=== PATIENT | female | born 1950 | race Caucasian/White ===

== ENCOUNTER 2016-12-04 21:42 | Emergency (ER) | payer OTHER ==
--- NOTE | 2016-12-05 02:00 | ED CLINICAL REPORT ---
Clinical Report - Physicians/Mid Levels [facility] [address] [place] [address] 12/04/2016 21:44 [id number] Time Seen: 22:20 Dec 04 2016. Arrived- By private vehicle. Historian- patient. CPT: ER phys charges level 4 (#[id number]). HISTORY OF PRESENT ILLNESS Chief Complaint: FEVER and CHILLS. ( Onset. (pt has been off and on ill x 6 weeks, was on antibiotics for sinus infection, just finished 1 week ago --states that she was getting nause with antibiotics,(ampicillin) so did not take last 2 days worth of meds). She has had chills, sinus pain, a headache and vomiting. She has had chest congestion (last week).). 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 Her sinus symptoms got a lot better on the abx. last night patient had a severe episode of rigors and then had a spell again today . Fever noted in ER. and is still present. At its maximum, severity described as moderate. When seen in the E.D., it was gone. Modifying factors. Not worsened by anything. Not relieved by anything. The patient has had loss of appetite. (Pt notes amoxicillin caused nausea so she stopped it. Pt notes food today would not pass the stomach so she vomited. Denies pain anywhere. Says her sinus pain is gone after the recent abx. No diarrhea, abdominal pain. Has had a slight cough with sinus infection but that is also better. Has a "gallbladder that does not like fatty foods" but denies RUQ pain. No dysuria , throat pain or rash. No adenopathy.). Similar symptoms previously: As bad. Diagnosis: (Sinus infection). Recent medical care: The patient was seen recently at another facility in a clinic. REVIEW OF SYSTEMS The patient has had fever, a cough and chills. No sore throat, sinus drainage, nasal congestion, difficulty breathing or chest pain. No abdominal pain, nausea, diarrhea, black stools or bloody stools. No difficulty with urination, skin rash, back pain or calf pain. All systems otherwise negative, except as recorded above. PAST HISTORY Plantar Puncture Wound. Soft Tissue Foreign Body. Additional Surgeries: no known surgeries. Medications: Ibuprofen Oral 600 mg, 4x a day as needed, last dose 1000 today . Allergies: No Known Drug Allergy. SOCIAL HISTORY Never smoker. No alcohol use or drug use. ADDITIONAL NOTES The nursing notes have been reviewed. PHYSICAL EXAM Vital Signs: 12/04/2016 21:56 BP: 152/62. HR: 108. RR: 20. O2 saturation: 97%. Temp: 103.1 F. Appearance: Alert. No acute distress. Eyes: Pupils equal, round and reactive to light. Eyes normal inspection. ENT: Ears normal. Nose normal. Pharynx normal. Neck: Normal inspection. Neck supple. No meningeal signs. CVS: Normal heart rate and rhythm. Heart sounds normal. Pulses normal. Respiratory: No respiratory distress. Breath sounds normal. Chest nontender. Abdomen: Soft and nontender. Bowel sounds normal. Back: Normal inspection. Skin: Skin warm. Normal skin color. No rash. Extremities: Extremities exhibit normal ROM. No lower extremity edema. Neuro: Oriented X 3. No motor deficit. No sensory deficit. Reflexes normal. LABS, X-RAYS, AND EKG Chest X-ray: Normal Chest X-Ray. Laboratory Tests: UA-Culture if indicated: (PAMELLA: 12/04/2016 23:53) ( MsgRcvd 12/05/2016 00:14) Final results Test Result Flag Units (Reference) URINE COLOR YELLOW URINE APPEARANCE SL CLOUDY URINE GLUCOSE NEGATIVE (NEGATIVE) URINE BILIRUBIN NEGATIVE (NEGATIVE) URINE KETONE NEGATIVE (NEGATIVE) URINE SPECIFIC GRAVITY 1.010 (1.010-1.030) URINE PH 6.5 (5.0-8.0) URINE PROTEIN TRACE (NEGATIVE) URINE UROBILINOGEN 0.2 EU/dL (0.2-1.0) URINE NITRITE POSITIVE (NEGATIVE) URINE BLOOD 1+ (NEGATIVE) URINE LEUK ESTERASE POSITIVE (NEGATIVE) URINE RBC 3-5 rbc/hpf (0-1) URINE WBC 25-50 wbc/hpf (0-1) URINE EPITHELIAL CELLS 10-15 EPI/hpf (0-5) URINE BACTERIA MODERATE (2+ TO 3+) (NONE SEEN) URINE COMMENT CULTURE INDICATED URINE CULTURES ARE SET-UP BASED ON THE FOLLOWING CRITERIA:POSITIVE NITRITEPOSITIVE LEUKOCYTE ESTERASEGREATER THAN 10 WHITE BLOOD CELLSMODERATE (2+) OR GREATER BACTERIA CBC w Diff: (PAMELLA: 12/04/2016 22:54) ( [facility] 12/04/2016 23:38) Final results Test Result Flag Units (Reference) WHITE BLOOD COUNT 11.5 K/uL (4.5-11.5) RED BLOOD COUNT 4.92 M/uL (4.00-5.20) HEMOGLOBIN 13.8 gm/dL (12.0-16.0) HEMATOCRIT 42.2 % (36.0-46.0) MEAN CELL VOLUME 86 fL (80-100) MEAN CORPUSCULAR HGB 28 pg (26-34) MEAN CORPUSCULAR HGB CONC 33 g/dL (31-37) RED CELL DISTRIBUTION WIDTH 13.1 % (11.6-14.8) PLATELET COUNT 261 K/uL (150-400) LYMPH % 6.4 L % (25-40) MONO % 2.7 L % (3-14) GRANULOCYTE % 90.9 H (53-90) Lactate, Serum: (PAMELLA: 12/04/2016 22:54) ( [facility] 12/05/2016 00:04) Final results Test Result Flag Units (Reference) LACTIC ACID 2.7 H mmol/L (0.4-2.0) [id number]: (PAMELLA: 12/04/2016 22:54) ( [facility] 12/05/2016 00:34) Final results Test Result Flag Units (Reference) PROCALCITONIN 1.1 H ng/mL (0-0.5) PCT Concentration: Interpretation : Risk/option for action PCT <=0.5 ng/mL : Systemic : Low risk forinfection(sepsis): progression to severeis not likely. : systemic infection.Local bacterial : CAUTION-PCT levelsinfection is : below 0.5 ng/mL do notpossible. : exclude an infection,because localizedinfections (withoutsystemic signs) may beassociated with suchlow levels. If PCT ismeasured very earlyafter a bacterialchallenge (usually <6hours), these valuesmay still be low. Inthis case PCT shouldbe re-assessed 6-24hours later. PCT >0.5 and : Systemic infection: Moderate risk for<= 2 ng/mL : (sepsis) is : progression to severepossible, but : systemic infection.other conditions : The patient should beare known to : closely monitoredelevate PCT. : both clinically andby re-assessing PCTwithin 6-24 hours. PCT > 2 ng/mL : Systemic infection: High risk for(sepsis) is likely: progression to severeunless other : systemic infection.causes are known. : PCT >= 10 ng/mL : Important systemic: High likelihood ofinflammatory : severe sepsis orresponse, almost : septic shock.exclusively due to:severe bacterial :sepsis or septic :shock. : Lipase: (PAMELLA: 12/04/2016 22:54) ( MsgRcvd 12/04/2016 23:52) Final results Test Result Flag Units (Reference) LIPASE 85 U/L (73-393) AMYLASE 36 U/L (25-115) CHEM 13 PANEL: (PAMELLA: 12/04/2016 22:54) ( MsgRcvd 12/04/2016 23:55) Final results Test Result Flag Units (Reference) GLUCOSE 144 H mg/dL (70-110) BUN 17 mg/dL (7-18) CREATININE 1.1 mg/dL (0.6-1.3) Estimated GFR 52.98 mL/min Estimated GFR- >60 mL/min Note: Persistent reduction over 3 months in eGFR<60 mL/min/1.73 m2 defines CKD. Patients with eGFR values>=60 mL/min/1.73 m2 may also have CKD if evidence ofpersistent proteinuria. Additional information may be foundat www.kidney.org. SODIUM 138 mmol/L (136-145) POTASSIUM 3.9 mmol/L (3.5-5.1) CHLORIDE 102 mmol/L (98-107) CARBON DIOXIDE 24 mmol/L (21-32) CALCIUM 9.1 mg/dL (8.5-10.1) TOTAL PROTEIN 7.4 g/dL (6.4-8.2) ALBUMIN 3.7 g/dL (3.3-5.0) BILIRUBIN, TOTAL 0.8 mg/dL (0.0-1.0) ALKALINE PHOSPHATASE 65 U/L (46-116) AST (SGOT) 30 U/L (15-37) ALT (SGPT) 39 U/L (12-78) MAGNESIUM 1.9 mg/dL (1.8-2.4) CPK 117 U/L (24-260) TROPONIN I <0.05 ng/mL (0.00-1.5) TROPONIN REFERENCE RANGE:<0.1 NEGATIVE0.1-1.5 INDETERMINANT>1.5 POSITIVE Rapid Influenza Screen: (PAMELLA: 12/04/2016 22:16) ( MsgRcvd 12/04/2016 22:32) Final results SPECIMEN DESCRIPTION: NASAL Test Result Flag Units (Reference) RAPID INFLUENZA SCREEN CALLED TO: NA -- DATE: 12/04/16 INFLUENZA A: NEGATIVE SCREEN FOR INFLUENZA A INFLUENZA B: NEGATIVE SCREEN FOR INFLUENZA B . PROGRESS AND PROCEDURES Course of Care: Tylenol 1g po IV NS BC times 2 Levaquin 500 mg IV Patient is stable. Patient/family counseled. Disposition: Discharged. Condition: stable. CLINICAL IMPRESSION UTI Bacteremia with rigors and fever. INSTRUCTIONS No strenuous activity. Rest. Drink plenty of fluids. Warnings: Further evaluation is necessary. GENERAL WARNINGS: Return or contact your physician immediately if your condition worsens or changes unexpectedly, if not improving as expected, or if other problems arise. Prescription Medications: Levaquin 500 mg: take 1 tab orally every day for 10 days. No refills. Substitution is permissible. Follow-up: Return to the emergency department If worse. Follow up with your doctor Wednesday in two days. Call for an appointment. Understanding of the discharge instructions verbalized by patient and family. Follow-up with: [facility], , , [address], , [facility] [id number] Follow up Wednesday in two days. Call for the next available appointment. (Electronically signed by Tim Lazo MD 12/06/2016 23:47)
--- NOTE | 2016-12-05 02:00 | ED NURSING NOTES ---
Clinical Report - Nurses [facility] [address] [place] [address] 12/04/2016 21:44 Patient: ANDRAE DILLARD TRIAGE Triage time 2150. Acuity: LEVEL 3. Chief Complaint: FEVER, COUGH and BODY ACHES. --22:02 Iona Roach R.N. 21:56 12/04/16. O2 saturation: 97%. Temp: 103.1 F. Pain level now 0/10. --22:02 Iona Roach R.N. Weight: 107.9 kg stated. Height/Length: 63 inches Per Patient. BMI: 42.1. --22:00 Iona Roach R.N. Medications Ibuprofen Oral 600 mg, 4x a day as needed, last dose 1000 today . --22:02 Iona Roach R.N. Allergies No Known Drug Allergy. --22:02 Iona Roach R.N. History Arrived by private vehicle. Historian: patient and family. Accompanied by family. No primary care physician. Onset. (pt has been off and on ill x 6 weeks, was on antibiotics for sinus infection, just finished 1 week ago --states that she was getting nause with antibiotics,(ampicillin) so did not take last 2 days worth of meds). She has had chills, sinus pain, a headache and vomiting. She has had chest congestion (last week). PAST MEDICAL HX: Immunizations: (8years ago). SURGERY HX: No history of previous surgery. SOCIAL HX: Never smoker. No alcohol use or drug use. --22:02 Iona Roach R.N. PROBLEMS: Plantar Puncture Wound. Soft Tissue Foreign Body. --21:59 Iona Roach R.N. ADDITIONAL SURGERIES: no known surgeries. Interventions ID band on patient. To treatment room. --22:02 Iona Roach R.N. PHYSICAL ASSESSMENT 22:03 12/04/16. Ambulatory to room. Patient gowned. GENERAL / NEURO / PSYCH: Alert. Oriented X 4. Appears in no acute distress. RESPIRATORY: Respirations not labored. Cough. Chest wall tenderness. CVS: Capillary refill less than 2 seconds. GI / : ( constipation). She has had nausea. Abdomen soft. SKIN: Skin is dry. Hot skin. --22:03 Iona Roach R.N. NURSING PROGRESS NOTES 21:50. Patient gowned. Head of bed elevated. Reassurance given. Patient identifiers checked. Call light placed in reach. Side rails up. Bed placed in lowest position. Patient ready for evaluation- chart flagged. --22:02 Iona Roach R.N. 22:11 12/04/2016 Tylenol (Acetaminophen) PO Tablets 1000 mg given. Allergies verified and confirmed 5 rights. --22:11 Iona Roach R.N. 22:12 12/04/16. Patient ID band checked for patient name and birthdate: patient confirmed. Flu swab obtained by RN via nasal pharyngeal swab. Labeled in the presence of the patient and sent to lab. --22:12 Iona Roach R.N. 22:25 12/04/16. Care transferred and report given (Ihsan ROBIN). --22:25 Iona Roach R.N. 23:00 12/04/2016 Site #1 started via IV in the right antecubital space with an 18g angiocath, with aseptic technique and good blood return; one attempt. Blood drawn: rainbow set and cultures x1. Labeled in the presence of the patient and sent to the lab. --23:00 Ihsan Murphy R.N. 23:00 12/04/2016 Started bag #1 500 mL IV Fluids IV NS (Saline); bolus of 500 mL wide open via site #1. Allergies verified and confirmed 5 rights. IV patency established. IV site checked: no pain, redness, or swelling. IV flushed thoroughly pre- and post-medication administration. --23:00 Ihsna Murphy R.N. 00:50 12/05/2016 Started 500 mg of Levaquin (Levofloxacin) IVPB in bag #1 100 mL; at 100 mL/hr over 1 hour(s) via site #1 via IV pump. Allergies verified and confirmed 5 rights. IV patency established. IV site checked: no pain, redness, or swelling. IV flushed thoroughly pre- and post-medication administration. --00:50 Ihsan Murphy R.N. DISPOSITION / DISCHARGE Condition at departure: improved. No learning barriers present. Discharge instructions provided and reviewed with the patient. Reviewed warnings. Reviewed medication(s). Treatments reviewed. Patient and family verbalized understanding. Written instructions provided in Spanish. The patient was discharged by the physician. She was discharged home and accompanied by family. She left the Emergency Department ambulatory and via private vehicle. Family member driving. --02:02 Ihsan Murphy R.N. 02:01 12/05/16. BP: 117/50. HR: 77. RR: 18. O2 saturation: 96%. Temp: 98.7 F. Pain level now 0/10. --02:02 Ihsan Murphy R.N. Departure time: 1. --02:12 Ihsan Murphy R.N. Locked/Released at 12/05/2016 2:12 by Ihsan Murphy R.N.
--- NOTE | 2016-12-05 02:00 | ED CLINICAL REPORT ---
Clinical Report - Physicians/Mid Levels [facility] [address] [place] [address] 12/04/2016 21:44 [id number] Time Seen: 22:20 Dec 04 2016. Arrived- By private vehicle. Historian- patient. CPT: ER phys charges level 4 (#[id number]). HISTORY OF PRESENT ILLNESS Chief Complaint: FEVER and CHILLS. ( Onset. (pt has been off and on ill x 6 weeks, was on antibiotics for sinus infection, just finished 1 week ago --states that she was getting nause with antibiotics,(ampicillin) so did not take last 2 days worth of meds). She has had chills, sinus pain, a headache and vomiting. She has had chest congestion (last week).). 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 Her sinus symptoms got a lot better on the abx. last night patient had a severe episode of rigors and then had a spell again today . Fever noted in ER. and is still present. At its maximum, severity described as moderate. When seen in the E.D., it was gone. Modifying factors. Not worsened by anything. Not relieved by anything. The patient has had loss of appetite. (Pt notes amoxicillin caused nausea so she stopped it. Pt notes food today would not pass the stomach so she vomited. Denies pain anywhere. Says her sinus pain is gone after the recent abx. No diarrhea, abdominal pain. Has had a slight cough with sinus infection but that is also better. Has a "gallbladder that does not like fatty foods" but denies RUQ pain. No dysuria , throat pain or rash. No adenopathy.). Similar symptoms previously: As bad. Diagnosis: (Sinus infection). Recent medical care: The patient was seen recently at another facility in a clinic. REVIEW OF SYSTEMS The patient has had fever, a cough and chills. No sore throat, sinus drainage, nasal congestion, difficulty breathing or chest pain. No abdominal pain, nausea, diarrhea, black stools or bloody stools. No difficulty with urination, skin rash, back pain or calf pain. All systems otherwise negative, except as recorded above. PAST HISTORY Plantar Puncture Wound. Soft Tissue Foreign Body. Additional Surgeries: no known surgeries. Medications: Ibuprofen Oral 600 mg, 4x a day as needed, last dose 1000 today . Allergies: No Known Drug Allergy. SOCIAL HISTORY Never smoker. No alcohol use or drug use. ADDITIONAL NOTES The nursing notes have been reviewed. PHYSICAL EXAM Vital Signs: 12/04/2016 21:56 BP: 152/62. HR: 108. RR: 20. O2 saturation: 97%. Temp: 103.1 F. Appearance: Alert. No acute distress. Eyes: Pupils equal, round and reactive to light. Eyes normal inspection. ENT: Ears normal. Nose normal. Pharynx normal. Neck: Normal inspection. Neck supple. No meningeal signs. CVS: Normal heart rate and rhythm. Heart sounds normal. Pulses normal. Respiratory: No respiratory distress. Breath sounds normal. Chest nontender. Abdomen: Soft and nontender. Bowel sounds normal. Back: Normal inspection. Skin: Skin warm. Normal skin color. No rash. Extremities: Extremities exhibit normal ROM. No lower extremity edema. Neuro: Oriented X 3. No motor deficit. No sensory deficit. Reflexes normal. LABS, X-RAYS, AND EKG Chest X-ray: Normal Chest X-Ray. Laboratory Tests: UA-Culture if indicated: (PAMELLA: 12/04/2016 23:53) ( MsgRcvd 12/05/2016 00:14) Final results Test Result Flag Units (Reference) URINE COLOR YELLOW URINE APPEARANCE SL CLOUDY URINE GLUCOSE NEGATIVE (NEGATIVE) URINE BILIRUBIN NEGATIVE (NEGATIVE) URINE KETONE NEGATIVE (NEGATIVE) URINE SPECIFIC GRAVITY 1.010 (1.010-1.030) URINE PH 6.5 (5.0-8.0) URINE PROTEIN TRACE (NEGATIVE) URINE UROBILINOGEN 0.2 EU/dL (0.2-1.0) URINE NITRITE POSITIVE (NEGATIVE) URINE BLOOD 1+ (NEGATIVE) URINE LEUK ESTERASE POSITIVE (NEGATIVE) URINE RBC 3-5 rbc/hpf (0-1) URINE WBC 25-50 wbc/hpf (0-1) URINE EPITHELIAL CELLS 10-15 EPI/hpf (0-5) URINE BACTERIA MODERATE (2+ TO 3+) (NONE SEEN) URINE COMMENT CULTURE INDICATED URINE CULTURES ARE SET-UP BASED ON THE FOLLOWING CRITERIA:POSITIVE NITRITEPOSITIVE LEUKOCYTE ESTERASEGREATER THAN 10 WHITE BLOOD CELLSMODERATE (2+) OR GREATER BACTERIA CBC w Diff: (PAMELLA: 12/04/2016 22:54) ( [facility] 12/04/2016 23:38) Final results Test Result Flag Units (Reference) WHITE BLOOD COUNT 11.5 K/uL (4.5-11.5) RED BLOOD COUNT 4.92 M/uL (4.00-5.20) HEMOGLOBIN 13.8 gm/dL (12.0-16.0) HEMATOCRIT 42.2 % (36.0-46.0) MEAN CELL VOLUME 86 fL (80-100) MEAN CORPUSCULAR HGB 28 pg (26-34) MEAN CORPUSCULAR HGB CONC 33 g/dL (31-37) RED CELL DISTRIBUTION WIDTH 13.1 % (11.6-14.8) PLATELET COUNT 261 K/uL (150-400) LYMPH % 6.4 L % (25-40) MONO % 2.7 L % (3-14) GRANULOCYTE % 90.9 H (53-90) Lactate, Serum: (PAMELLA: 12/04/2016 22:54) ( [facility] 12/05/2016 00:04) Final results Test Result Flag Units (Reference) LACTIC ACID 2.7 H mmol/L (0.4-2.0) [id number]: (PAMELLA: 12/04/2016 22:54) ( [facility] 12/05/2016 00:34) Final results Test Result Flag Units (Reference) PROCALCITONIN 1.1 H ng/mL (0-0.5) PCT Concentration: Interpretation : Risk/option for action PCT <=0.5 ng/mL : Systemic : Low risk forinfection(sepsis): progression to severeis not likely. : systemic infection.Local bacterial : CAUTION-PCT levelsinfection is : below 0.5 ng/mL do notpossible. : exclude an infection,because localizedinfections (withoutsystemic signs) may beassociated with suchlow levels. If PCT ismeasured very earlyafter a bacterialchallenge (usually <6hours), these valuesmay still be low. Inthis case PCT shouldbe re-assessed 6-24hours later. PCT >0.5 and : Systemic infection: Moderate risk for<= 2 ng/mL : (sepsis) is : progression to severepossible, but : systemic infection.other conditions : The patient should beare known to : closely monitoredelevate PCT. : both clinically andby re-assessing PCTwithin 6-24 hours. PCT > 2 ng/mL : Systemic infection: High risk for(sepsis) is likely: progression to severeunless other : systemic infection.causes are known. : PCT >= 10 ng/mL : Important systemic: High likelihood ofinflammatory : severe sepsis orresponse, almost : septic shock.exclusively due to:severe bacterial :sepsis or septic :shock. : Lipase: (PAMELLA: 12/04/2016 22:54) ( MsgRcvd 12/04/2016 23:52) Final results Test Result Flag Units (Reference) LIPASE 85 U/L (73-393) AMYLASE 36 U/L (25-115) CHEM 13 PANEL: (PAMELLA: 12/04/2016 22:54) ( MsgRcvd 12/04/2016 23:55) Final results Test Result Flag Units (Reference) GLUCOSE 144 H mg/dL (70-110) BUN 17 mg/dL (7-18) CREATININE 1.1 mg/dL (0.6-1.3) Estimated GFR 52.98 mL/min Estimated GFR- >60 mL/min Note: Persistent reduction over 3 months in eGFR<60 mL/min/1.73 m2 defines CKD. Patients with eGFR values>=60 mL/min/1.73 m2 may also have CKD if evidence ofpersistent proteinuria. Additional information may be foundat www.kidney.org. SODIUM 138 mmol/L (136-145) POTASSIUM 3.9 mmol/L (3.5-5.1) CHLORIDE 102 mmol/L (98-107) CARBON DIOXIDE 24 mmol/L (21-32) CALCIUM 9.1 mg/dL (8.5-10.1) TOTAL PROTEIN 7.4 g/dL (6.4-8.2) ALBUMIN 3.7 g/dL (3.3-5.0) BILIRUBIN, TOTAL 0.8 mg/dL (0.0-1.0) ALKALINE PHOSPHATASE 65 U/L (46-116) AST (SGOT) 30 U/L (15-37) ALT (SGPT) 39 U/L (12-78) MAGNESIUM 1.9 mg/dL (1.8-2.4) CPK 117 U/L (24-260) TROPONIN I <0.05 ng/mL (0.00-1.5) TROPONIN REFERENCE RANGE:<0.1 NEGATIVE0.1-1.5 INDETERMINANT>1.5 POSITIVE Rapid Influenza Screen: (PAMELLA: 12/04/2016 22:16) ( MsgRcvd 12/04/2016 22:32) Final results SPECIMEN DESCRIPTION: NASAL Test Result Flag Units (Reference) RAPID INFLUENZA SCREEN CALLED TO: NA -- DATE: 12/04/16 INFLUENZA A: NEGATIVE SCREEN FOR INFLUENZA A INFLUENZA B: NEGATIVE SCREEN FOR INFLUENZA B . PROGRESS AND PROCEDURES Course of Care: Tylenol 1g po IV NS BC times 2 Levaquin 500 mg IV Patient is stable. Patient/family counseled. Disposition: Discharged. Condition: stable. CLINICAL IMPRESSION UTI Bacteremia with rigors and fever. INSTRUCTIONS No strenuous activity. Rest. Drink plenty of fluids. Warnings: Further evaluation is necessary. GENERAL WARNINGS: Return or contact your physician immediately if your condition worsens or changes unexpectedly, if not improving as expected, or if other problems arise. Prescription Medications: Levaquin 500 mg: take 1 tab orally every day for 10 days. No refills. Substitution is permissible. Follow-up: Return to the emergency department If worse. Follow up with your doctor Wednesday in two days. Call for an appointment. Understanding of the discharge instructions verbalized by patient and family. Follow-up with: [facility], , , [address], , [facility] [id number] Follow up Wednesday in two days. Call for the next available appointment. (Electronically signed by Tim Lazo MD 12/06/2016 23:47)
--- NOTE | 2016-12-05 02:00 | ED ORDER SUMMARY ---
..... Patient: ANDRAE DILLARD OrderSheet [facility] VisitID: [id number] [place] [address] 66y, F Registration Date/Time: 12/04/2016 ORDER SHEET Weight: 107.9 kg (stated) Allergies: No Known Drug Allergy GENERAL ORDERS: Rapid Influenza Screen (Nasal Pharyngeal) (nasal) Urgent (22:11 12/04/2016 DDean R.N. per protocol) (Ack 22:16 AMcQuoid ER Tech1) (22:16 AMcQuoid ER Tech1) Blood Culture (No) (stopped amoxicillin 2 days ago. ) Urgent (22:35 12/04/2016 Dot CLEANING) (Ack 22:38 AMcQuoid ER Tech1) (23:11 AMcQuoid ER Tech1) Chest 2V Urgent (22:36 12/04/2016 Dot CLEANING) (Ack 22:38 AMcQuoid ER Tech1) (23:00 MCampbell) UA-Culture if indicated Urgent (22:36 12/04/2016 Dot CLEANING) (Ack 22:38 AMcQuoid ER Tech1) (23:53 JEullard R.N.) Cardiac Panel Stat (22:36 12/04/2016 Dot CLEANING) (Ack 22:38 AMcQuoid ER Tech1) (22:59 JBullard R.N.) Lipase Urgent (22:36 12/04/2016 Dot CLEANING) (Ack 22:38 AMcQuoid ER Tech1) (22:59 JEullard R.N.) Amylase Urgent (22:36 12/04/2016 Dot CLEANING) (Ack 22:38 AMcQuoid ER Tech1) (22:59 JEullard R.N.) Lactate, Serum Urgent (22:36 12/04/2016 Dot CLEANING) (Ack 22:38 AMcQuoid ER Tech1) (22:59 JBullard R.N.) PCT (Procalcitonin) Urgent (22:36 12/04/2016 Dot CLEANING) (Ack 22:38 AMcQuoid ER Tech1) (23:00 JBullard R.N.) MEDICATION ORDERS: Tylenol PO 1,000 mg (NOW) (22:10 12/04/2016 Mitzi R.N. per protocol) (22:11 Mitzi R.N.) IV FLUIDS: IV NS : initial bolus 500 mL (1000 mL/hr), then 150 mL/hr for 4h (NOW); Routine (22:35 12/04/2016 Dot CLEANING) (23:00 Angela R.N.) Levaquin IV 500 mg/100mL (NOW) (00:27 12/05/2016 Dot CLEANING) (0:50 Angela Wheeler.NGayatri) ORDER SHEET NOTES: [Electronically signed by Ihsan Murphy R.N. (02:12 12/05/2016)] [Electronically signed by Tim Lazo MD (23:47 12/06/2016)] [Electronically locked/signed by Ihsan Murphy R.N. (02:12 12/05/2016)]
--- NOTE | 2016-12-05 02:00 | ED ORDER SUMMARY ---
..... Patient: ANDRAE DILLARD OrderSheet [facility] VisitID: [id number] [place] [address] 66y, F Registration Date/Time: 12/04/2016 ORDER SHEET Weight: 107.9 kg (stated) Allergies: No Known Drug Allergy GENERAL ORDERS: Rapid Influenza Screen (Nasal Pharyngeal) (nasal) Urgent (22:11 12/04/2016 DDean R.N. per protocol) (Ack 22:16 AMcQuoid ER Tech1) (22:16 AMcQuoid ER Tech1) Blood Culture (No) (stopped amoxicillin 2 days ago. ) Urgent (22:35 12/04/2016 Dot CLEANING) (Ack 22:38 AMcQuoid ER Tech1) (23:11 AMcQuoid ER Tech1) Chest 2V Urgent (22:36 12/04/2016 Dot CLEANING) (Ack 22:38 AMcQuoid ER Tech1) (23:00 MCampbell) UA-Culture if indicated Urgent (22:36 12/04/2016 Dot CLEANING) (Ack 22:38 AMcQuoid ER Tech1) (23:53 JEullard R.N.) Cardiac Panel Stat (22:36 12/04/2016 Dot CLEANING) (Ack 22:38 AMcQuoid ER Tech1) (22:59 JBullard R.N.) Lipase Urgent (22:36 12/04/2016 Dot CLEANING) (Ack 22:38 AMcQuoid ER Tech1) (22:59 JEullard R.N.) Amylase Urgent (22:36 12/04/2016 Dot CLEANING) (Ack 22:38 AMcQuoid ER Tech1) (22:59 JEullard R.N.) Lactate, Serum Urgent (22:36 12/04/2016 Dot CLEANING) (Ack 22:38 AMcQuoid ER Tech1) (22:59 JBullard R.N.) PCT (Procalcitonin) Urgent (22:36 12/04/2016 Dot CLEANING) (Ack 22:38 AMcQuoid ER Tech1) (23:00 JBullard R.N.) MEDICATION ORDERS: Tylenol PO 1,000 mg (NOW) (22:10 12/04/2016 Mitzi R.N. per protocol) (22:11 Mitzi R.N.) IV FLUIDS: IV NS : initial bolus 500 mL (1000 mL/hr), then 150 mL/hr for 4h (NOW); Routine (22:35 12/04/2016 Dot CLEANING) (23:00 Angela R.N.) Levaquin IV 500 mg/100mL (NOW) (00:27 12/05/2016 Dot CLEANING) (0:50 Angela Wheeler.[email or web address]) ORDER SHEET NOTES: [Electronically signed by Ihsan Murphy R.N. (02:12 12/05/2016)] [Electronically signed by Tim Lazo MD (23:47 12/06/2016)] [Electronically locked/signed by Ihsan Murphy R.N. (02:12 12/05/2016)]
--- NOTE | 2016-12-05 06:04 | DIAGNOSTIC IMAGING REPORT ---
PROCEDURE: XR CHEST 2 VIEW INDICATION: FEVER TECHNIQUE: Two views. COMPARISON: None. FINDINGS: The cardiomediastinal contour and central vasculature are within normal limits. Mild lower lobe interstitial prominence. Minor strand-like wispy densities in the medial lung bases bilaterally. No dense consolidation, pleural effusion, or pneumothorax. The visualized osseous structures are intact. IMPRESSION: 1. Minor patchy interstitial and parenchymal changes, likely subsegmental atelectasis with interstitial thickening. Findings could be seen in viral or atypical infections. 2. No dense consolidations to suggest bacterial pneumonia.
--- NOTE | 2016-12-06 23:47 | ED DISCHARGE INSTRUCTIONS ---
Patient: ANDRAE DILLARD General Instructions [facility] VisitID: [id number] [address] [place] [address] 66y, F Registration Date/Time: 12/04/2016 UTI Bacteremia with rigors and fever. INSTRUCTIONS No strenuous activity. Rest. Drink plenty of fluids. Warnings: Further evaluation is necessary. GENERAL WARNINGS: Return or contact your physician immediately if your condition worsens or changes unexpectedly, if not improving as expected, or if other problems arise. Prescription Medications: Levaquin 500 mg: take 1 tab orally every day for 10 days. No refills. Substitution is permissible. Follow-up: Return to the emergency department If worse. Follow up with your doctor Wednesday in two days. Call for an appointment. Understanding of the discharge instructions verbalized by patient and family. Follow-up with: [facility], , , [address], [place], [id number] Follow up Wednesday in two days. Call for the next available appointment. ADDITIONAL INFORMATION Levofloxacin Oral tablet What is this medicine? LEVOFLOXACIN (lela carbajal) is a quinolone antibiotic. It is used to treat certain kinds of bacterial infections. It will not work for colds, flu, or other viral infections. How should I use this medicine? Take this medicine by mouth with a full glass of water. Follow the directions on the prescription label. This medicine can be taken with or without food. Take your medicine at regular intervals. Do not take your medicine more often than directed. Do not skip doses or stop your medicine early even if you feel better. Do not stop taking except on your doctor's advice. A special MedGuide will be given to you by the pharmacist with each prescription and refill. Be sure to read this information carefully each time. Talk to your coding team lead regarding the use of this medicine in children. While this drug may be prescribed for children as young as 6 months for selected conditions, precautions do apply. What side effects may I notice from receiving this medicine? Side effects that you should report to your doctor or health emergency care attendant as soon as possible: -allergic reactions like skin rash or hives, swelling of the face, lips, or tongue -changes in vision -confusion, nightmares or hallucinations -difficulty breathing -irregular heartbeat, chest pain -joint, muscle or tendon pain -pain or difficulty passing urine -persistent headache with or without blurred vision -redness, blistering, peeling or loosening of the skin, including inside the mouth -seizures -unusual pain, numbness, tingling, or weakness -vaginal irritation, discharge Side effects that usually do not require medical attention (report to your doctor or health emergency care attendant if they continue or are bothersome): -diarrhea -dry mouth -headache -stomach upset, nausea -trouble sleeping What may interact with this medicine? Do not take this medicine with any of the following medications: - arsenic trioxide - chloroquine - droperidol - medicines for irregular heart rhythm like amiodarone, disopyramide, dofetilide, flecainide, quinidine, procainamide, sotalol - some medicines for depression or mental problems like phenothiazines, pimozide, and ziprasidone This medicine may also interact with the following medications: - amoxapine -antacids - cisapride - dairy products - didanosine (ddI) buffered tablets or powder - haloperidol - multivitamins -NSAIDS, medicines for pain and inflammation, like ibuprofen or naproxen - retinoid products like tretinoin or isotretinoin - risperidone - some other antibiotics like clarithromycin or erythromycin - sucralfate - theophylline - warfarin What if I miss a dose? If you miss a dose, take it as soon as you remember. If it is almost time for your next dose, take only that dose. Do not take double or extra doses. Where should I keep my medicine? Keep out of the reach of children. Store at room temperature between 15 and 30 degrees C (59 and 86 degrees F). Keep in a tightly closed container. Throw away any unused medicine after the expiration date. What should I tell my health care provider before I take this medicine? They need to know if you have any of these conditions: cerebral disease irregular heartbeat kidney disease seizure disorder an unusual or allergic reaction to levofloxacin, other antibiotics or medicines, foods, dyes, or preservatives or trying to get breast-feeding What should I watch for while using this medicine? Tell your doctor or health emergency care attendant if your symptoms do not improve or if they get worse. Drink several glasses of water a day and cut down on drinks that contain caffeine. You must not get dehydrated while taking this medicine. You may get drowsy or dizzy. Do not drive, use machinery, or do anything that needs mental alertness until you know how this medicine affects you. Do not sit or stand up quickly, especially if you are an older patient. This reduces the risk of dizzy or fainting spells. This medicine can make you more sensitive to the sun. Keep out of the sun. If you cannot avoid being in the sun, wear protective clothing and use a sunscreen. Do not use sun lamps or tanning beds/booths. Contact your doctor if you get a sunburn. If you are a diabetic monitor your blood glucose carefully. If you get an unusual reading stop taking this medicine and call your doctor right away. Do not treat diarrhea with [id number] products. Contact your doctor if you have diarrhea that lasts more than 2 days or if the diarrhea is severe and watery. Avoid antacids, calcium, iron, and zinc products for 2 hours before and 2 hours after taking a dose of this medicine. You have been given the following additional information: Levofloxacin Oral tablet No strenuous activity. Rest. (Electronically signed by Tim Lazo MD 12/06/2016 23:47)
--- NOTE | 2016-12-06 23:47 | ED MED RECONCILIATION SUMMARY ---
Patient: ANDRAE DILLARD Medication Reconciliation Report [facility] VisitID: [id number] [address] [place] [address] 66y, F Registration Date/Time: 12/04/2016 Weight: 107.9 kg Height/Length: 63 in. BMI: 42.1 ALLERGIES: No Known Drug Allergy The patient's Home Medications are listed below: THE FOLLOWING MEDICATIONS NEED TO BE RECONCILED: Ibuprofen Oral 600 mg, 4x a day, last dose: 1000 today The source(s) of the original Home Medication information: Not obtained. The following Medications were given to the patient in the Emergency Department: Tylenol [PO] PO 1000 mg, administered: 12/04/2016 10:11:00 PM IV NS IV Fluids bolus 500 mL wide open, administered: 12/04/2016 11:00:00 PM Levaquin [IVPB] IVPB bolus 0, then 500 mg 100 mL/hr, administered: 12/05/2016 12:50:00 AM The following Medications were prescribed to the patient: Levaquin 500 mg: take 1 tab orally every day for 10 days. No refills. Substitution is permissible. -- Tim Lazo MD
--- NOTE | 2016-12-06 23:47 | ED MAR SUMMARY ---
..... Medication Administration Record [facility] [address] [place] [address] Patient: ANDRAE DILLARD Visit ID: [id number] 66y, F Weight: 107.9 kg Height/Length: 63 in BMI: 42.1 ALLERGIES: No Known Drug Allergy Given 22:11 12/04/2016 Iona Roach R.N. Medication Administered: TYLENOL [PO] (ACETAMINOPHEN), Dose: 1000 mg Tablets PO. Medication Ordered: Tylenol PO 1,000 mg (NOW). Start 23:00 12/04/2016 Ihsan Murphy R.N. Medication Administered: IV NS (SALINE), Dose: IV Fluids, Bolus: 500 mL wide open, Dispensed: 500 mL bag, Site: #1 right AC. Medication Ordered: IV NS : initial bolus 500 mL (1000 mL/hr), then 150 mL/hr for 4h (NOW); Routine. Start 00:50 12/05/2016 Ihsan Murphy R.N. Medication Administered: LEVAQUIN [IVPB] (LEVOFLOXACIN), Dose: 500 mg IVPB over 1 hour(s), Rate: 100 mL/hr, Dispensed: 100 mL bag, Site: #1 right AC. Medication Ordered: Levaquin IV 500 mg/100mL (NOW).
--- NOTE | 2016-12-06 23:47 | ED MAR SUMMARY ---
..... Medication Administration Record [facility] [address] [place] [place] [address] Patient: ANDRAE DILLRAD Visit ID: [id number] 66y, F Weight: 107.9 kg Height/Length: 63 in BMI: 42.1 ALLERGIES: No Known Drug Allergy Given 22:11 12/04/2016 Iona Roach R.N. Medication Administered: TYLENOL [PO] (ACETAMINOPHEN), Dose: 1000 mg Tablets PO. Medication Ordered: Tylenol PO 1,000 mg (NOW). Start 23:00 12/04/2016 Ihsan Murphy R.N. Medication Administered: IV NS (SALINE), Dose: IV Fluids, Bolus: 500 mL wide open, Dispensed: 500 mL bag, Site: #1 right AC. Medication Ordered: IV NS : initial bolus 500 mL (1000 mL/hr), then 150 mL/hr for 4h (NOW); Routine. Start 00:50 12/05/2016 Ihsan Murphy R.N. Medication Administered: LEVAQUIN [IVPB] (LEVOFLOXACIN), Dose: 500 mg IVPB over 1 hour(s), Rate: 100 mL/hr, Dispensed: 100 mL bag, Site: #1 right AC. Medication Ordered: Levaquin IV 500 mg/100mL (NOW).
--- NOTE | 2016-12-06 23:47 | ED DISCHARGE INSTRUCTIONS ---
Patient: ANDRAE DILLARD General Instructions [facility] VisitID: [id number] [address] [place] [address] 66y, F Registration Date/Time: 12/04/2016 UTI Bacteremia with rigors and fever. INSTRUCTIONS No strenuous activity. Rest. Drink plenty of fluids. Warnings: Further evaluation is necessary. GENERAL WARNINGS: Return or contact your physician immediately if your condition worsens or changes unexpectedly, if not improving as expected, or if other problems arise. Prescription Medications: Levaquin 500 mg: take 1 tab orally every day for 10 days. No refills. Substitution is permissible. Follow-up: Return to the emergency department If worse. Follow up with your doctor Wednesday in two days. Call for an appointment. Understanding of the discharge instructions verbalized by patient and family. Follow-up with: [facility], , , [address], [place], [id number] Follow up Wednesday in two days. Call for the next available appointment. ADDITIONAL INFORMATION Levofloxacin Oral tablet What is this medicine? LEVOFLOXACIN (lela carbajal) is a quinolone antibiotic. It is used to treat certain kinds of bacterial infections. It will not work for colds, flu, or other viral infections. How should I use this medicine? Take this medicine by mouth with a full glass of water. Follow the directions on the prescription label. This medicine can be taken with or without food. Take your medicine at regular intervals. Do not take your medicine more often than directed. Do not skip doses or stop your medicine early even if you feel better. Do not stop taking except on your doctor's advice. A special MedGuide will be given to you by the pharmacist with each prescription and refill. Be sure to read this information carefully each time. Talk to your kids activities coach regarding the use of this medicine in children. While this drug may be prescribed for children as young as 6 months for selected conditions, precautions do apply. What side effects may I notice from receiving this medicine? Side effects that you should report to your doctor or health resident care aid as soon as possible: -allergic reactions like skin rash or hives, swelling of the face, lips, or tongue -changes in vision -confusion, nightmares or hallucinations -difficulty breathing -irregular heartbeat, chest pain -joint, muscle or tendon pain -pain or difficulty passing urine -persistent headache with or without blurred vision -redness, blistering, peeling or loosening of the skin, including inside the mouth -seizures -unusual pain, numbness, tingling, or weakness -vaginal irritation, discharge Side effects that usually do not require medical attention (report to your doctor or health resident care aid if they continue or are bothersome): -diarrhea -dry mouth -headache -stomach upset, nausea -trouble sleeping What may interact with this medicine? Do not take this medicine with any of the following medications: - arsenic trioxide - chloroquine - droperidol - medicines for irregular heart rhythm like amiodarone, disopyramide, dofetilide, flecainide, quinidine, procainamide, sotalol - some medicines for depression or mental problems like phenothiazines, pimozide, and ziprasidone This medicine may also interact with the following medications: - amoxapine -antacids - cisapride - dairy products - didanosine (ddI) buffered tablets or powder - haloperidol - multivitamins -NSAIDS, medicines for pain and inflammation, like ibuprofen or naproxen - retinoid products like tretinoin or isotretinoin - risperidone - some other antibiotics like clarithromycin or erythromycin - sucralfate - theophylline - warfarin What if I miss a dose? If you miss a dose, take it as soon as you remember. If it is almost time for your next dose, take only that dose. Do not take double or extra doses. Where should I keep my medicine? Keep out of the reach of children. Store at room temperature between 15 and 30 degrees C (59 and 86 degrees F). Keep in a tightly closed container. Throw away any unused medicine after the expiration date. What should I tell my health care provider before I take this medicine? They need to know if you have any of these conditions: cerebral disease irregular heartbeat kidney disease seizure disorder an unusual or allergic reaction to levofloxacin, other antibiotics or medicines, foods, dyes, or preservatives or trying to get breast-feeding What should I watch for while using this medicine? Tell your doctor or health resident care aid if your symptoms do not improve or if they get worse. Drink several glasses of water a day and cut down on drinks that contain caffeine. You must not get dehydrated while taking this medicine. You may get drowsy or dizzy. Do not drive, use machinery, or do anything that needs mental alertness until you know how this medicine affects you. Do not sit or stand up quickly, especially if you are an older patient. This reduces the risk of dizzy or fainting spells. This medicine can make you more sensitive to the sun. Keep out of the sun. If you cannot avoid being in the sun, wear protective clothing and use a sunscreen. Do not use sun lamps or tanning beds/booths. Contact your doctor if you get a sunburn. If you are a diabetic monitor your blood glucose carefully. If you get an unusual reading stop taking this medicine and call your doctor right away. Do not treat diarrhea with [id number] products. Contact your doctor if you have diarrhea that lasts more than 2 days or if the diarrhea is severe and watery. Avoid antacids, calcium, iron, and zinc products for 2 hours before and 2 hours after taking a dose of this medicine. You have been given the following additional information: Levofloxacin Oral tablet No strenuous activity. Rest. (Electronically signed by Tim Lazo MD 12/06/2016 23:47)
--- NOTE | 2016-12-06 23:47 | ED MED RECONCILIATION SUMMARY ---
Patient: ANDRAE DILLARD Medication Reconciliation Report [facility] VisitID: [id number] [address] [place] [address] 66y, F Registration Date/Time: 12/04/2016 Weight: 107.9 kg Height/Length: 63 in. BMI: 42.1 ALLERGIES: No Known Drug Allergy The patient's Home Medications are listed below: THE FOLLOWING MEDICATIONS NEED TO BE RECONCILED: Ibuprofen Oral 600 mg, 4x a day, last dose: 1000 today The source(s) of the original Home Medication information: Not obtained. The following Medications were given to the patient in the Emergency Department: Tylenol [PO] PO 1000 mg, administered: 12/04/2016 10:11:00 PM IV NS IV Fluids bolus 500 mL wide open, administered: 12/04/2016 11:00:00 PM Levaquin [IVPB] IVPB bolus 0, then 500 mg 100 mL/hr, administered: 12/05/2016 12:50:00 AM The following Medications were prescribed to the patient: Levaquin 500 mg: take 1 tab orally every day for 10 days. No refills. Substitution is permissible. -- Tim Lazo MD
== END 2016-12-05 02:11 | disposition home or self-care (01) ==
LOC: ED SRH 21:42
DX: N39.0 Urinary tract infection, site not specified (principal); R78.81 Bacteremia; R50.81 Fever presenting with conditions classified elsewhere; Z79.1 Long term (current) use of non-steroidal anti-inflammatories (NSAID)
CPT/HCPCS: 90004; 90065; 90074; 90100; 90148; 90469; 90616; 91400; 92031; 92235; 92530; 92610; 92720; 93004; 95059